=== PATIENT | female | born 1965 | race Caucasian/White ===

== ENCOUNTER 2017-07-19 19:32 | Emergency (ER) | payer SELFPAY ==
[~2017-07-19] VITALS: Ht 180.3 cm; Wt 116.6 kg
[2017-07-19 19:36] VITALS: TEMP 36.7; Ht 180.3 cm; Wt 116.6 kg
[2017-07-19] MEDS ORDERED: ASPIRIN 324 MG CHEW PO STA (20:06)
[2017-07-19] MEDS ORDERED: NITROGLYCERIN OINT 2% 1GM PACKET EXT ONE (20:15)
[2017-07-19 20:26] LABS: BASO % 0.4 %; BASO ABS # 0.03 K/uL (0-0.2); COMPLETE YES; EOS % 2.3 %; HEMATOCRIT 40.8 % (37-47); IG% 0.1 %; LYMPH % 30.5 %; LYMPH ABS # 2.15 K/uL (1.2-3.4); MEAN CELL VOLUME 91.9 fL (80-100); MEAN CORPUSCULAR HGB CONC 34.8 g/dl (32-36); MEAN PLATELET VOLUME 10.2 fL (7.4-10.4); MONO % 7.4 %; NEUT % 59.3 %; PLATELET COUNT 197 K/uL (130-400); RED BLOOD COUNT 4.44 M/uL (4.2-5.4); WHITE BLOOD COUNT 7.04 K/uL (4.8-10.8)
[2017-07-19 20:43] LABS: ALT/SGPT 22 U/L (12-78); AST/SGOT 10 U/L (15-37); BLOOD UREA NITROGEN 9 mg/dl (7-18); BUN/CREATININE RATIO 10.7 (10-20); CALCIUM 8.9 mg/dl (8.5-10.1); CARBON DIOXIDE 27 mmol/L (21-32); CHLORIDE 108 mmol/L (98-107); CREATININE 0.88 mg/dl (0.60-1.20); GLUCOSE 104 mg/dl (70-99); POTASSIUM 4.2 mmol/L (3.5-5.1); SODIUM 139 mmol/L (136-145)
--- NOTE | 2017-07-19 20:49 | DIAGNOSTIC IMAGING REPORT ---
CHEST ONE VIEW PORTABLE CLINICAL HISTORY: Chest pain. COMPARISON STUDY: No previous studies for comparison. FINDINGS: There is no pneumothorax or pleural effusion. No consolidation is identified. There is pulmonary vascular congestion without overt edema. Borderline cardiomegaly is noted. IMPRESSION: 1. Pulmonary vascular congestion without pulmonary edema. 2. Borderline cardiomegaly. 3. Left hilar prominence likely due to pulmonary vessels. Electronically signed by: Torey Presley M.D. 07/19/2017 8:48 PM Dictated Date/Time: 07/19/2017 8:46 PM
--- NOTE | 2017-07-19 20:51 | EMERGENCY ROOM VISIT NOTE ---
History First contact with patient: 19:52 Chief Complaint: CHEST PAIN Stated Complaint: CHEST PAIN, MIDDLE BACK ALL THE WAY AROUND, SOB Nursing Triage Summary: Pt complains of chest pain, back pain and SOB. Pt had same symptoms on Friday and was admitted to [facility]. History of Present Illness The patient is a 51 year old female who presents to the Emergency Room with complaints of chest pain that started about noon today when she was sitting on the couch. She describes it as a pain that starts in her back and wraps around to the front of her rib cage. She then feels a pressure-like sensation in the mid chest. She also feels short of breath. Deep inspiration does not make the pain worse. Patient denies any history of cardiac disease. She had a similar pain earlier in the week. She was admitted at [facility], and then subsequently transferred to [place] where she had a full cardiac workup. They performed a stress test, echocardiogram and reportedly a CT scans with no acute findings. She was told that the pain was likely musculoskeletal. She has not taken anything for the pain. She also reports feeling nauseated. She denies any abdominal pain. Review of Systems 10 system review performed and negative unless noted in HPI or below Past Medical/Surgical History Otherwise healthy Family History Both mother and father had heart attacks in their 50-60s Social History Smoking Status: Current Every Day Smoker Current/Historical Medications No Active Prescriptions or Reported Meds Physical Exam Vital Signs Date Time Temp Pulse Resp B/P (MAP) Pulse Ox O2 Delivery O2 Flow Rate FiO2 07/19/17 22:30 66 07/19/17 22:19 66 18 153/99 96 Room Air 07/19/17 21:21 67 20 153/84 96 Room Air 07/19/17 20:21 69 20 133/94 97 Room Air 07/19/17 19:55 71 07/19/17 19:36 36.7 72 20 172/79 96 Room Air Physical Exam VITALS: Vitals are noted on the nurse's note and reviewed by myself. Vital signs stable. GENERAL: 51-year-old female. Anxious in appearance.\nondiaphoretic SKIN: The skin was without rashes, erythema, edema, or bruising. HEAD: Normocephalic atraumatic. NECK: Supple without nuchal rigidity. No JVD. HEART: Regular rate and rhythm faint systolic murmur auscultated at the upper left sternal border LUNGS: Clear to auscultation bilaterally without wheezes, rales or rhonchi. No accessory muscle use. No tenderness to palpation over the thorax ABDOMEN: Positive bowel sounds x 4.Soft, nontender, without organomegaly. No guarding or rebound tenderness. MUSCULOSKELETAL: No muscle atrophy, erythema, or edema noted. Strength 5/5 throughout. NEURO: Patient was alert and oriented to person place and time. Normal sensation to touch. No focal neurological deficits. Medical Decision & Procedures ER Provider Diagnostic Interpretation: Chest x-ray IMPRESSION: 1. Pulmonary vascular congestion without pulmonary edema. 2. Borderline cardiomegaly. 3. Left hilar prominence likely due to pulmonary vessels. Electronically signed by: Torey Presley M.D. 07/19/2017 8:48 PM Dictated Date/Time: 07/19/2017 8:46 PM The status of this report is Signed. Draft = Not yet reviewed or approved by Radiologist. Signed = Reviewed and approved by Radiologist. Laboratory Results 07/19/17 20:18 Red Blood Count 4.44, Mean Corpuscular Volume 91.9, Mean Corpuscular Hemoglobin 32.0, Mean Corpuscular Hemoglobin Concent 34.8, Mean Platelet Volume 10.2, Neutrophils (%) (Auto) 59.3, Lymphocytes (%) (Auto) 30.5, Monocytes (%) (Auto) 7.4, Eosinophils (%) (Auto) 2.3, Basophils (%) (Auto) 0.4, Neutrophils # (Auto) 4.17, Lymphocytes # (Auto) 2.15, Monocytes # (Auto) 0.52, Eosinophils # (Auto) 0.16, Basophils # (Auto) 0.03 07/19/17 20:18 Test 07/19/17 20:18 07/19/17 21:41 White Blood Count 7.04 K/uL (4.8-10.8) Red Blood Count 4.44 M/uL (4.2-5.4) Hemoglobin 14.2 g/dL (12.0-16.0) Hematocrit 40.8 % (37-47) Mean Corpuscular Volume 91.9 fL (80-100) Mean Corpuscular Hemoglobin 32.0 pg (25-34) Mean Corpuscular Hemoglobin Concent 34.8 g/dl (32-36) Platelet Count 197 K/uL (130-400) Mean Platelet Volume 10.2 fL (7.4-10.4) Neutrophils (%) (Auto) 59.3 % Lymphocytes (%) (Auto) 30.5 % Monocytes (%) (Auto) 7.4 % Eosinophils (%) (Auto) 2.3 % Basophils (%) (Auto) 0.4 % Neutrophils # (Auto) 4.17 K/uL (1.4-6.5) Lymphocytes # (Auto) 2.15 K/uL (1.2-3.4) Monocytes # (Auto) 0.52 K/uL (0.11-0.59) Eosinophils # (Auto) 0.16 K/uL (0-0.5) Basophils # (Auto) 0.03 K/uL (0-0.2) RDW Standard Deviation 42.5 fL (36.4-46.3) RDW Coefficient of Variation 12.7 % (11.5-14.5) Immature Granulocyte % (Auto) 0.1 % Immature Granulocyte # (Auto) 0.01 K/uL (0.00-0.02) Anion Gap 4.0 mmol/L (3-11) Est Creatinine Clear Calc Drug Dose 107.6 ml/min Estimated GFR () 88.8 Estimated GFR (Non- 76.6 BUN/Creatinine Ratio 10.7 (10-20) Calcium Level 8.9 mg/dl (8.5-10.1) Total Bilirubin 0.2 mg/dl (0.2-1) Aspartate Amino Transf (AST/SGOT) 10 U/L (15-37) Alanine Aminotransferase (ALT/SGPT) 22 U/L (12-78) Alkaline Phosphatase 65 U/L (45-117) Total Creatine Kinase 58 U/L (26-192) Creatine Kinase MB 1.1 ng/ml (0.5-3.6) Creatine Kinase MB Ratio 1.9 (0-3.0) Total Protein 7.1 gm/dl (6.4-8.2) Albumin 3.7 gm/dl (3.4-5.0) Globulin 3.4 gm/dl (2.5-4.0) Albumin/Globulin Ratio 1.1 (0.9-2) Lipase 112 U/L (73-393) Thyroid Stimulating Hormone (TSH) 6.370 uIu/ml (0.300-4.500) Troponin I < 0.015 ng/ml (0-0.045) Medications Administered Medications (Trade) Dose Ordered Sig/Martir Route Start Time Stop Time Status Last Admin Dose Admin Aspirin (Aspirin Chew) 324 mg NOW STAT PO 07/19/17 20:06 07/19/17 20:09 DC 07/19/17 20:26 324 MG Nitroglycerin (Nitroglycerin 2% Oint) 1 inch NOW ONCE EXT 07/19/17 20:15 07/19/17 20:16 DC 07/19/17 20:26 1 INCH ECG Indication: chest pain Rate (beats per minute): 70 Rhythm: normal sinus Findings: other Comparison ECG Date: no prior available ED Course Patient was seen and examined Vital signs including blood pressure were reviewed medications list was verified with patient Labs were obtained, and a saline lock was established The patient was given aspirin 324 milligrams chew. She was also given Nitropaste. The patient was discussed with supervising physician I discussed the workup with the patient. She voiced understanding. A repeat EKG was performed, and unchanged from the previous. I also repeated a troponin , which was negative. I discussed disposition options with the patient. She was comfortable being discharged home. I reviewed discharge instructions the patient. They voiced understanding and had no further questions. Medical Decision Differential diagnosis: Acute myocardial infarction, cardiac arrhythmia, anemia , thyroid abnormality, pneumothorax, pneumonia, bronchitis, pericarditis, electrolyte imbalance, musculoskeletal pain This patient is a 51-year-old female that presents to emergency department with complaints of chest pain and difficulty breathing that started this morning around noon. On exam, she was anxious in appearance. Her EKG does not show any signs of acute ischemia or infarction. Her troponin is negative. The studies were also repeated, and unchanged. The patient had an extensive workup at [facility] earlier this week, which included a stress test, echocardiogram and a CT scan. These were reviewed and negative for cardiac ischemia or pulmonary embolus. The patient did have symptomatic relief in the emergency department tonight with nitroglycerin. There is questionable placebo effect with a negative cardiac workup. I discussed disposition options with the patient. She was comfortable being discharged home with close follow-up. I believe this is reasonable. She was given the number to the [facility] cardiology group. She will call first thing Aurelio morning for a follow-up appointment. I highly encouraged the patient to return immediately to the emergency department with any new, worsening or concerning symptoms. She is in agreement with this plan. This chart was completed in part utilizing [employer] Speech Voice Recognition software. Attempts were made to minimize the grammatical errors, random word insertions, pronoun errors and incomplete sentences. Any formal questions or concerns about the content, text or information contained within the body of this dictation should be directly addressed to the provider for clarification. Medication Reconcilliation Current Medication List: was personally reviewed by me Blood Pressure Screening Patient's blood pressure: Elevated blood pressure Blood pressure disposition: Elevated BP felt to be situational Impression Primary Impression: Chest pain Departure Information Dispostion Home / Self-Care Condition GOOD Prescriptions No Active Prescriptions or Reported Meds Referrals No Doctor, Assigned (PCP) Master Roper M.D. Patient Instructions [facility] Additional Instructions You were evaluated in the emergency department for chest pain. The cause of this is unclear. It does not appear to be cardiac in nature. Please continue current medications as prescribed. Please call the [facility] cardiology group first thing Friday for a follow-up appointment. Please do not hesitate to return to the emergency department with a new, worsening or concerning symptoms; especially, worsening pain, difficulty breathing, lightheadedness or sweating
[2017-07-19 20:53] LABS: ALB/GLOB RATIO 1.1 (0.9-2); ALKALINE PHOSPHATASE 65 U/L (45-117); CKMB/CK RATIO 1.9 (0-3.0)
[2017-07-19] MEDS ORDERED: NITROGLYCERIN 0.4 MG SL PER TAB CHARGE SL PRN (22:45)
[2017-07-19] MEDS ORDERED: EMPTY 8 DRAM VIAL ONE (22:59)
[2017-07-19 23:04] VITALS: BP 132/89; PULSE 68; O2SAT 97
== END 2017-07-19 23:06 | disposition home or self-care (01) ==
LOC: C.EDB 19:35
DX: R07.9 Chest pain, unspecified (principal); F17.210 Nicotine dependence, cigarettes, uncomplicated; Z82.49 Family history of ischemic heart disease and other diseases of the circulatory system